=== PATIENT | female | born 1960 | race Caucasian/White ===

== ENCOUNTER 2018-03-30 16:00 | Outpatient (CLI) | payer BC | END 2018-03-30 16:01 | disposition home or self-care (01) | LOC: DI.N 16:00 | PROVIDERS: ATTEND Family Medicine | DX: Z53.9 Procedure and treatment not carried out, unspecified reason (principal) ==

== ENCOUNTER 2018-05-25 10:08 | Outpatient (CLI) | payer BC ==
--- NOTE | 2018-05-31 07:52 | Mammography Report ---
Procedure Date: 05/25/2018 Accession Number: [id number] / [id number] Procedure: MGN - Screening Mammo Dig w/Implants CPT Code: FULL RESULT: EXAM: Screening Mammo Dig w/Implants DATE: 05/25/2018 10:35 AM CLINICAL HISTORY: 58-year-old female with history of hormone therapy for 20 years. TECHNIQUE: Bilateral CC and MLO views were obtained. COMPARISON: 01/07/2015. FINDINGS: The breasts demonstrate scattered fibroglandular densities bilaterally. At the 5:00 position in the right breast is an asymmetry with suggestion of grouped fine pleomorphic calcifications. These are incompletely imaged on the right MLO implant displacement view and further images should be obtained. No suspicious masses are identified. Breast implants appear intact. Left breast biopsy marker is stable. IMPRESSION: Incomplete examination RECOMMENDATION: Additional evaluation as above. BIRADS CATEGORY 0: Incomplete examination STANDARD QUALIFYING STATEMENTS: 1. This examination was reviewed with the aid of Computer-Aided Detection (CAD). 2. A negative or benign imaging report should not delay biopsy if clinically suspicious findings are present. Consider surgical consultation if warrented. More than 5% of cancers are not identified by imaging. 3. Dense breasts may obscure an underlying neoplasm.
== END 2018-05-25 10:09 | disposition home or self-care (01) ==
LOC: DI.N 10:08
PROVIDERS: ATTEND Family Medicine
DX: Z12.31 Encounter for screening mammogram for malignant neoplasm of breast (principal); R92.8 Other abnormal and inconclusive findings on diagnostic imaging of breast; Z98.82 Breast implant status
CPT/HCPCS: 77067